=== PATIENT | male | born 1995 | race African-American/Black ===

== ENCOUNTER 2017-04-03 06:30 | Emergency (ER) | payer OTHER ==
[~2017-04-03] VITALS: Ht 177.8 cm; Wt 73.9 kg
[2017-04-03 06:34] VITALS: BP 113/65
[2017-04-03] MEDS ORDERED: DIVA500T1 PO (06:37)
--- NOTE | 2017-04-03 06:37 | NUR ---
Patient to bed 12.
--- NOTE | 2017-04-03 06:40 | NUR ---
PATIENT PRESENTS TO ED WITH c/o dizziness/headache. pt not taking prescribed depakaote x 1 month. PT DENIES N/V/D; SKIN IS PINK/WARM/DRY; AAOX4 WITH EVEN AND STEADY GAIT; LUNGS CLEAR BL; HR EVEN AND REGULAR; PT DENIES ANY FEVER, CP, SOB, OR COUGH AT THIS TIME; PATIENT STATES PAIN OF 6/10 AT THIS TIME; VSS; PATIENT POSITIONED FOR COMFORT; HOB ELEVATED; BEDRAILS UP X2; BED DOWN. ER MD MADE AWARE OF PT STATUS.
--- NOTE | 2017-04-03 07:08 | NUR ---
Dex man in [facility] - 04/03/17 at 0721 by [facility] RECEIVED REPORT FROM ALEXA RIVERA.
--- NOTE | 2017-04-03 07:08 | NUR ---
REPORT TO ALEXA ESCOBAR
--- NOTE | 2017-04-03 07:09 | NUR ---
Note donovan in EDM - 04/03/17 at 0714 by [facility] RECEOVED REPORT FROM ALEXA RIVERA. RT AT BEDSIDE FOR BREATHING TREATMENT. PT AAO X4 ,LUNGS SMALL DIMINISHED.WILL CONTINUE TO MONITOR.
--- NOTE | 2017-04-03 07:18 | NUR ---
Patient being evaluated by DR CASAS at bedside.
[2017-04-03] MEDS ORDERED: IBUPROFEN 800 MG TAB PO ONE (07:25)
[2017-04-03] MEDS ORDERED: DIVALPROEX 500 MG TABEC PO ONE (07:25)
[2017-04-03] MEDS ORDERED: ONDANSETRON 4 MG ODT PO ONE (07:25)
--- NOTE | 2017-04-03 07:35 | NUR ---
LAB AT BEDSIDE.
[2017-04-03 07:43] LABS: BASOPHILS # (AUTO) 0.2 K/uL (0.00-0.22); BASOPHILS % (AUTO) 2.6 % (0.0-2.0); EOSINOPHILS # (AUTO) 0.4 K/uL (0-0.4); EOSINOPHILS % (AUTO) 5.2 % (0.0-4.0); HEMOGLOBIN 14.1 g/dL (12.0-18.0); LYMPHOCYTES % (AUTO) 13.2 % (20.5-51.1); MEAN CORPUSCULAR HEMOGLOBIN 28 pg (27-31); MEAN CORPUSCULAR HGB CONC 34 g/dL (33-37); MEAN CORPUSCULAR VOLUME 83 fL (80-94); MONOCYTES # (AUTO) 0.7 K/uL (0.8-1.0); MONOCYTES % (AUTO) 8.8 % (1.7-9.3); NEUTROPHILS # (AUTO) 5.2 K/uL (1.8-7.7); NEUTROPHILS % (AUTO) 70.2 % (42.2-75.2); PLATELET COUNT (AUTO) 202 K/uL (140-450); RED BLOOD CELL COUNT(AUTO) 5.04 MIL/uL (4.20-6.10); RED CELL DISTRIBUTION WIDTH 13.9 % (11.6-13.7); WHITE BLOOD COUNT (AUTO) 7.5 K/uL (4.8-10.8)
--- NOTE | 2017-04-03 07:47 | NUR ---
pt sts headache 09/12.Patient appears to be resting comfortably in bed. Vital Signs within normal limits. Respirations even and unlabored.WILL CONTINUE TO MONITOR.
[2017-04-03 07:52] LABS: ANION GAP 10.8 (8-16); CARBON DIOXIDE 30.3 mmol/L (21-32); POTASSIUM 4.1 mmol/L (3.5-5.1)
[2017-04-03 07:59] LABS: ALBUMIN 4.3 g/dL (3.4-5.0); TOTAL BILIRUBIN 0.2 mg/dL (0.0-1.0)
[2017-04-03 08:30] VITALS: BP 127/85
--- NOTE | 2017-04-03 08:30 | NUR ---
Patient discharged with v/s stable. Written and verbal after care instructions given and explained. Patient alert, oriented and verbalized understanding of instructions. Ambulatory with steady gait. All questions addressed prior to discharge. ID band removed. Patient advised to follow up with PMD. Rx of DEPOKOTE given. Patient educated on indication of medication including possible reaction and side effects. Opportunity to ask questions provided and answered.
== END 2017-04-03 08:30 | disposition home or self-care (01) ==
LOC: MED 06:30
DX: Z76.0 Encounter for issue of repeat prescription (principal); R51 Headache; R53.1 Weakness
CPT/HCPCS: 36415; 80053; 85025; 99284; S0119